=== PATIENT | male | born 1970 | race Two or more races ===

== ENCOUNTER 2020-05-16 14:11 | Emergency (ER) | payer OTHER ==
[~2020-05-16] VITALS: Ht 182.9 cm; Wt 100.9 kg
[2020-05-16] MEDS ORDERED: SODIUM CHLORIDE 0.9% 1,000ML IVBOLUS ONE (14:30)
[2020-05-16] MEDS ORDERED: SODIUM CHLORIDE FLUSH 10ML SYR IVF ONE (14:30)
[2020-05-16 15:01] LABS: ALANINE AMINOTRANSFERASE 55 U/L (12-78); ALBUMIN 3.8 g/dL (3.4-5.0); ANION GAP 8 mmol/L (5-15); CALCIUM 8.5 mg/dL (8.5-10.1); CHLORIDE 111 mmol/L (98-107); CREATININE 0.99 mg/dL (0.7-1.3)
[2020-05-16 15:04] LABS: ALKALINE PHOSPHATASE 78 U/L (45-117); BILIRUBIN,TOTAL 0.4 mg/dL (0.2-1.0); TOTAL PROTEIN 7.1 g/dL (6.4-8.2)
--- NOTE | 2020-05-16 15:07 | NUR ---
THIS PT IS A [employer] AND [employer] WHO HAS BEEN WORKING CLOSELY WITH COVID + PTs. PT PRESENTS TO THE ED TODAY AFTER HAVING LUNCH AND IMMEDIATELY THROWING UP X1 AFTERWARD. C/O N/V AND DIZZINESS AND MAO, PT STATES THAT MAO AND DIZZINESS ARE RESOLVING. EKG DONE IN TRIAGE, PT PLACED ON CARDIAC, BP AND O2 MONITORS. BEDRAILS UP X2, CALL LIGHT AND BELONGINGS IN REACH. WILL CONTINUE TO MONITOR.
[2020-05-16 15:48] LABS: BASOPHILS # (AUTO) 0.01 x10^3/uL (0-0.1); BASOPHILS % (AUTO) 0 % (0-1); EOSINOPHILS # (AUTO) 0.05 x10^3/uL (0-0.4); EOSINOPHILS % (AUTO) 1 % (1-7); LYMPHOCYTES # (AUTO) 1.74 x10^3/uL (1-3.4); LYMPHOCYTES % (AUTO) 22 % (22-44); MD NO; MEAN CORPUSCULAR HEMOGLOBIN 27.4 pg (27.5-34.5); MEAN CORPUSCULAR HGB CONC 32.3 g/dL (33.2-36.2); MEAN CORPUSCULAR VOLUME 84.9 fL (81-97); MEAN PLATELET VOLUME 8.1 fL (7.4-10.4); MONOCYTES # (AUTO) 0.21 x10^3/uL (0.2-0.8); MONOCYTES % (AUTO) 3 % (2-9); NEUTROPHILS # (AUTO) 5.81 x10^3/uL (1.8-6.8); NEUTROPHILS % (AUTO) 74 % (42-75); PLATELET COUNT 212 x10^3/uL (130-400); RED BLOOD COUNT 4.89 x10^6/uL (4.38-5.82); RED CELL DISTRIBUTION WIDTH 14.8 % (9.4-14.8)
[2020-05-16] MEDS ORDERED: SODIUM CHLORIDE 0.9%, 500ML IVBOLUS ONE (16:00)
--- NOTE | 2020-05-16 16:02 | NUR ---
PT LAYING IN BED, EYES CLOSED, RESPIRATIONS EVEN AND UNLABORED. AWAITING CT. WILL CONTINUE TO MONITOR.
--- NOTE | 2020-05-16 16:06 | NUR ---
PT TO IMAGING.
[2020-05-16 16:18] VITALS: BP 144/87
--- NOTE | 2020-05-16 16:18 | NUR ---
PT BACK FROM IMAGING. STATES HE'S FEELING BETTER, DIZZINESS AND MAO "ALMOST COMPLETELY GONE." NAUSEA MADE WORSE WITH MOVEMENT, DENIES WANTING ANY MEDS.
== END 2020-05-16 17:03 | disposition home or self-care (01) ==
LOC: ED 16:55
DX: E86.0 Dehydration (principal); R11.2 Nausea with vomiting, unspecified; Z20.818 Contact with and (suspected) exposure to other bacterial communicable diseases; R42 Dizziness and giddiness; R51 Headache
CPT/HCPCS: 36415; 70450; 80053; 85025; 87635; 93005; 96360; 96361; 99285; J7030; J7040